=== PATIENT | male | born 1975 | race Caucasian/White ===

== ENCOUNTER 2020-07-28 10:37 | Emergency (ER) | payer BC, OTHER ==
[~2020-07-28] VITALS: Ht 185.4 cm; Wt 109.0 kg
[~2020-07-28 10:37] MED LIST: HYDR-2761 PO
[2020-07-28 10:38] VITALS: BP 148/65
--- NOTE | 2020-07-28 11:47 | PHYS DOC ---
Past Medical History Past Medical History: No Pertinent History Past Surgical History: Other Additional Past Surgical Histo: L THUMB,TUBE IN LIVER Smoking Status: Never Smoker Alcohol Use: None General Adult EDM: Chief Complaint: LACERATION/AVULSION HPI: HPI: Patient is a 45 year old male who presents to the ED today with right pinky finger laceration that occurred today at work, he states a piece of metal cut him. He is right-handed. Review of Systems: Review of Systems: Constitutional: Denies fever or chills. [] Musculoskeletal: Denies back pain or joint pain. [] Integument: Reports right pinky finger laceration Neurologic: Denies headache, focal weakness or sensory changes. [] Psychiatric: Denies depression or anxiety. [] Heart Score: Risk Factors: Risk Factors: DM, Current or recent (<one month) smoker, HTN, HLP, family history of CAD, obesity. Risk Scores: Score 0 - 3: 2.5% MACE over next 6 weeks - Discharge Home Score 4 - 6: 20.3% MACE over next 6 weeks - Admit for Clinical Observation Score 7 - 10: 72.7% MACE over next 6 weeks - Early Invasive Strategies Current Medications: Current Medications Medications (Trade) Dose Ordered Sig/Iris Start Time Stop Time Status Last Admin Dose Admin Diphtheria/ Tetanus/Acell Pertussis (ADACEL TDap SYRINGE) 0.5 ml ONCE ONCE 07/28/20 11:30 07/28/20 11:31 DC Lidocaine HCl (Buffered Lidocaine 1%) 6 ml 1X ONCE 07/28/20 11:30 07/28/20 11:31 DC Allergies: Allergies: Allergies Coded Allergies Type Severity Reaction Last Updated Verified egg Allergy Intermediate 01/03/15 No Uncoded Allergies Type Severity Reaction Last Updated Verified SHELLFISH Allergy Unknown UNKNOWN 07/28/20 TREE NUTS Allergy Unknown UNKNOWN 07/28/20 Physical Exam: PE: Constitutional: Well developed, well nourished, no acute distress, non-toxic appearance. [] Skin: Ventral aspect of the right pinky finger DIP end with a laceration approximately 2 cm long, there is no obvious tendon involvement. Patient can flex and extend the finger at all the joints with no difficulties. Adequate ulnar sensation to the right pinky finger. +2 right radial pulse. Cap refill less than 2 seconds the right pinky finger Back: No tenderness, no CVA tenderness. [] Extremities: No tenderness, no cyanosis, no clubbing, ROM intact, no edema. [] Neurologic: Alert and oriented X 3, normal motor function, normal sensory function, no focal deficits noted. [] Psychologic: Affect normal, judgement normal, mood normal. [] Current Patient Data: Vital Signs: Vital Signs Date Time Temp Pulse Resp B/P (MAP) Pulse Ox O2 Delivery O2 Flow Rate FiO2 07/28/20 10:38 98.4 83 17 148/65 (92) 97 Room Air 98.4 EKG: EKG: [] Radiology/Procedures: Radiology/Procedures: Laceration/Wound Repair Wound Location: Right pinky finger Wound's Depth, Shape: Horizontal Wound Length (cm): Approximately 2 cm Wound Explored: clean Irrigated w/ Saline (ccs): 30 Betadine Prep?: Yes Anesthesia: 1% of buffered lidocaine Volume Anesthetic (ccs): Approximately 3 cc Wound Repaired With: Vicryl Suture Size/Type: 5.0/interrupted sutures Number of Sutures: 4 Progress : Wound was covered with nonstick dressing Course & Med Decision Making: Course & Med Decision Making Pertinent Labs and Imaging studies reviewed. (See chart for details) This is a 45-year-old male patient with right pinky finger laceration that was closed with stitches as noted in procedures. He refused x-rays of the right pinky finger. Wound care instructions or return precautions provided. Tetanus updated in the ED. Willie Disclaimer: Willie Disclaimer: This electronic medical record was generated, in whole or in part, using a voice recognition dictation system. Departure Departure Impression: Primary Impression: Laceration of finger Qualified Codes: S61.216A - Laceration without foreign body of right little finger without damage to nail, initial encounter Disposition: 01 DC HOME SELF CARE/HOMELESS Condition: STABLE Referrals: PASHA ART MD (PCP) Follow-up with your doctor as needed Patient Instructions: Fingertip Laceration Additional Instructions: You have right pinky finger laceration that was closed with dissolvable stitches. Please remove the dressing in 24 hours. Keep the area open to air if is not draining or bleeding. Monitor the area for signs of infection including but not limited to increased redness, warmth, yellow drainage from the area and return to the ED. JOSIAH MARTINO APRN Jul 28, 2020 11:47
[2020-07-28] MEDS: DIPH,PERTUSS(ACELL),TET VAC/PF 0.5 ML SYRINGE. VAX IM ONE (11:57)
[2020-07-28] MEDS: LIDOCAINE WITH 8.4% SOD BICARB 3 ML DISP.SYRIN. INJ ONE (12:01)
== END 2020-07-28 12:04 | disposition home or self-care (01) ==
LOC: ER 10:37
DX: S61.216A Laceration without foreign body of right little finger without damage to nail, initial encounter (principal); Z91.018 Allergy to other foods; Z91.013 Allergy to seafood; Z91.012 Allergy to eggs; Y28.8XXA Contact with other sharp object, undetermined intent, initial encounter; Y93.89 Activity, other specified; Y92.69 Other specified industrial and construction area as the place of occurrence of the external cause; Y99.0 Civilian activity done for income or pay
CPT/HCPCS: 12001; 90471; 90715; 99283; J3490